=== PATIENT | male | born 1985 | race African-American/Black ===

== ENCOUNTER 2024-01-21 21:12 | Emergency (ER) | payer BC, MEDICAID ==
[~2024-01-21] VITALS: Ht 182.9 cm; Wt 123.0 kg
[2024-01-21 21:42] VITALS: BP 154/88; RESP 14; TEMP 98.4; O2SAT 100
[2024-01-21 21:44] VITALS: PULSE 89
== END 2024-01-22 00:02 | disposition home or self-care (01) ==
LOC: ER 21:12
DX: S61.011D Laceration without foreign body of right thumb without damage to nail, subsequent encounter (principal); Z98.890 Other specified postprocedural states; X58.XXXD Exposure to other specified factors, subsequent encounter
CPT/HCPCS: 99281

== ENCOUNTER 2024-02-01 16:16 | Emergency (ER) | payer BC, MEDICAID ==
[~2024-02-01] VITALS: Ht 182.9 cm; Wt 122.0 kg
[2024-02-01 16:19] VITALS: O2SAT 100
[2024-02-01 17:55] VITALS: BP 138/82; PULSE 87; RESP 16; TEMP 98.3
[2024-02-01] MEDS ORDERED: BO1 TP (17:59)
== END 2024-02-01 18:07 | disposition home or self-care (01) ==
LOC: ER 16:16
DX: S61.411D Laceration without foreign body of right hand, subsequent encounter (principal); X58.XXXD Exposure to other specified factors, subsequent encounter
CPT/HCPCS: 99282